=== PATIENT | female | born 1935 | race Caucasian/White ===

== ENCOUNTER → 2017-12-13 08:20 | Outpatient (CLI) | payer MEDICARE, OTHER, SELFPAY ==
[2017-12-13 11:46] LABS: Anion Gap 9 (5-15); BUN 18 mg/dL (7-18); BUN/Creat Ratio 24.2 RATIO (10-20); Calcium,Total 8.8 mg/dL (8.5-10.1); Chloride 105 mmol/L (98-107); Cholesterol 222 mg/dL (200); Creatinine, Serum 0.74 mg/dL (0.55-1.02); EST Glomerular Filtration Rate 79 mL/min (>60); Est Glom Filt Rate - Afr Amer 96 mL/min (>60); Glucose 97 mg/dL (74-106); High Density Lipoprotein 74 mg/dL; Potassium 4.3 mmol/L (3.5-5.1); Sodium Level 142 mmol/L (136-145); Triglycerides 76 mg/dL; Very Low Density Lipoprotein 15 mg/dL (5-40)
== END ==
PROVIDERS: Family Provider Family Medicine; PCP Family Medicine; Visit Provider Family Medicine
DX: Z00.00 Encounter for general adult medical examination without abnormal findings (principal)
CPT/HCPCS: 36415; 80048; 80061

== ENCOUNTER 2020-11-25 12:54 | Inpatient (IN) | payer MEDICARE, OTHER, SELFPAY ==
--- NOTE | 2020-11-14 12:12 | EKG12_ITS ---
Test Reason : PRE OP Blood Pressure : / mmHG Vent. Rate : 065 BPM Atrial Rate : 065 BPM P-R Int : 144 ms QRS Dur : 130 ms QT Int : 426 ms P-R-T Axes : 073 027 083 degrees QTc Int : 443 ms Normal sinus rhythm with sinus arrhythmia Left bundle branch block Abnormal ECG Confirmed by SHEREEN TREADWELL, SRINIVASA ([id number]), editor greeting card RAFIQ BELLA ([id number]) on 11/15/2020 8:39:45 AM Referred By: Gianni Ch Confirmed By:SRINIVASA REGAN MD
[2020-11-25] VITALS (11 sets, daily range): BP systolic 112–167; BP diastolic 43–76; PULSE 47–78; RESP 12–18; TEMP 35.4–37; O2SAT 94–99; BMI 21.9
--- NOTE | 2020-11-25 | LES_PTH ---
PATIENT: TAD RYAN LOC: MS3 U#:[id number] AGE/SX: 85/F ROOM: OR317 RE11/26/[address]: Dr. Gianni Ch MD : [id number] BED: 1 DIS: 11/27/2020 SPEC #: [id number] RECD: 11/25/20 12:28 STATUS: SHERIDAN BRANDIE #: [id number] DEANDRE: 11/25/20 00:[address]: Gianni Ch DEPT: SURGICAL PATHOLOGY RECD BY: Cintia Mahan ENTERED: 11/25/20 13:05 SP TYPE: Lesion OTHR DR: Dr. Anya Crowder MD Tissues: Skin of forehead Procedures: Frozen Section (charge) Frozen Section Add'l ([facility]) Surgery Specimen Level IV HEADER OPERATION: Left forehead lesion PRE-OP DIAGNOSIS: Left forehead lesion TISSUE SUBMITTED: Left forehead lesion, FS at 1226 FROZEN SECTION DIAGNOSIS Lesion of left forehead, biopsy: Invasive squamous cell carcinoma, excised in planes examined. 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 Solar elastosis and actinic change. See comment. AM:yolanda 11/28/2020 COMMENT There is no evidence of perineural or vascular invasion. The lesion appears to have been completely excised from the planes examined. MICROSCOPIC DESCRIPTION Slides are reviewed. GROSS DESCRIPTION Received fresh for frozen section consultation labeled with the patient's name is a specimen designated left forehead lesion. The specimen consists of an ellipse of light cuello excised skin measuring 3 x 1.3 x 0.8 cm and containing an exophytic pink-cuello nodule measuring 1.3 cm in diameter. The specimen has been oriented and is differentially inked as follows: superior - blue, inferior - black. The specimen is serially sectioned and totally submitted in two cassettes for frozen section consultation. / AM:yolanda 11/25/20 TC:0 CPT: 05002, 26208, 41727
[2020-11-25] MEDS: Lactated Ringers 1,000 ML 100 ML IV ×2 (10:07→18:33)
[2020-11-25 10:18] LABS: Absolute Lymphocyte Count 1.19 X10^3/uL (0.83-4.51); Absolute Neutrophil Count 2.3 X10^3/uL (2.0-7.7); Basophil# 0.05 X10^3/uL; Basophil% 1.3 % (0-1); Eosinophil# 0.07 X10^3/uL; Eosinophils% 1.8 % (0-5); Hematocrit 40.8 % (37-47); Lymphocyte # 1.19 X10^3/ul (0.83-4.51); Lymphocyte % 30.6 % (19-41); Mean Corp Hgb Conc 31.9 g/dL (32-36); Mean Corpuscular Hgb 29.5 pg (27.0-32.0); Mean Corpuscular Volume 92.7 fL (81-99); Mean Platelet Vol. 9.6 fl (6.2-12.0); Monocyte# 0.32 X10^3/uL; Monocyte% 8.2 % (0-10); NRBC Flagged by Analyzer 0 % (0-5); Neutrophil # 2.25 X10^3/uL (2.7-7.7); Neutrophil % 57.8 % (47-70); Platelet Count 237 K/mm3 (150-450); RBC Distribution Width CV 11.9 % (11.6-14.6); RBC Distribution Width SD 40.9 fl (35.1-43.9); White Blood Count 3.9 K/mm3 (4.4-11.0)
[2020-11-25 10:35] LABS: Anion Gap 4 (5-15); BUN 15 mg/dL (7-18); BUN/Creat Ratio 20.2 RATIO (10-20); Calcium,Total 8.8 mg/dL (8.5-10.1); Chloride 105 mmol/L (98-107); Creatinine, Serum 0.74 mg/dL (0.55-1.02); EST Glomerular Filtration Rate 79 mL/min (>60); Est Glom Filt Rate - Afr Amer 96 mL/min (>60); Glucose 101 mg/dL (74-106); Potassium 4.3 mmol/L (3.5-5.1); Sodium Level 140 mmol/L (136-145)
[2020-11-25] MEDS: Lidocaine 1% /Epi 1:100 (50ml) 50 ML VIAL (12:17)
[2020-11-25] MEDS: Bacitracin 500 UNITS/GM PACKET (12:38)
--- NOTE | 2020-11-25 12:41 | OP.PCM_ITS ---
Problems Associated Problem List Diagnoses (1) Zenker diverticulum: (2) Squamous cell carcinoma, face: Report of Operation Date of Procedure: 11/25/20 Pre-Operative Diagnosis: Zenker's diverticulum, suspicious lesion left forehead Post-Operative Diagnosis: Zenker's diverticulum, squamous cell carcinoma left forehead Surgery/Procedure Performed:: Transoral Zenker's diverticulotomy, excison of SCCA of left forehead 4.5 x 1.2 cm Description of Surgical Findings:: Margo is an 85-year-old female with progressive dysphagia secondary to a Zenker's diverticulum as well as a suspicious bleeding lesion of the left forehead for possible skin malignancy. She was counseled regarding the above procedures for treatment of these complaints and was eager to proceed. The risks, alternatives, potential complications, and benefits were discussed at length and any questions answered to the patient and/or caregiver's satisfaction. Witnessed informed consent was obtained in the office, and the patient and/or caregiver was agreeable to proceed. Procedure went as follows: The patient was identified in the preoperative holding and brought to the operating room she was placed under general anesthesia and intubated. When appropriate issues obtained the head of bed was rotated and the patient prepped and draped in usual sterile fashion. A dental guard was then placed to protect the upper teeth and a Weerda laryngoscope then introduced. The esophageal inlet was then visualized where posteriorly there is noted to be a diverticulum with impacted food bolus. This was then removed usi ng a suction. Anteriorly the esophageal lumen was then identified and confirmed by passing the NG tube where stomach secretions were noted on placing the tube on suction. The superiorly of the Weerda scope was then placed within the esophagus and the posteriorly within the diverticulum bringing the cricopharyngeal band into view and the patient then placed in suspension. Using the YUNI stapler this was then transected joining the diverticulum with the esophageal lumen and obliterating the diverticulum sac. This resulted in excellent correction of the diverticulum in the scope and the dental guard was then removed completing this portion of the procedure. The head of bed was then rotated back to the neutral position in the left forehead prepped and draped in usual sterile fashion. There is noted to be a 1 x 1 cm exophytic friable lesion of the left forehead in the area was then injected with 1% lidocaine with 1 100,000 epinephrine for a total of 3 mL. After allowing for vasoconstriction, a 15 blade scalpel was used to incise an ellipse 1.2 x 4.5 cm through the skin and subcutaneous tissue. This was then sharply undermined from the overlying musculature and sent for frozen section evaluation which revealed a squamous cell carcinoma with clear margins. The edges of the wound were then undermined and closed deeply with interrupted 4-0 Vicryl sutures followed by running 5-0 subcuticular Monocryl suture. Steri- Strips were then applied. The patient was then returned to anesthesia where she was advised about complication having tolerated the procedure well.` Surgeon: Gianni Ch Type of Anesthesia: General Anesthesiologist: Gal King Special Medications: none Specimen's removed: squamous cell carcinoma of face Drains: none Estimated Blood Loss (mL): 0 mL Fluids Replaced: 600 mL Grafts/Implants Used: none Complications none Admit VTE Documentation VTE Present on Admission: No VTE Mechan Device Prophylaxis: SCD's VTE Pharm Prophylaxis ordered?: No
[2020-11-25] MEDS: Acetaminophen 650 MG/20 ML UDC 500 MG PO (16:59)
[2020-11-25] MEDS: Ensure Clear 120 ML Liquid PO (18:33)
[2020-11-26] VITALS (14 sets, daily range): BP systolic 132–175; BP diastolic 58–67; PULSE 50–127; RESP 16–18; TEMP 36.7–37; O2SAT 96–98
[2020-11-26] MEDS: Acetaminophen 650 MG/20 ML UDC 500 MG PO (03:01)
[2020-11-26 06:00] LABS: Absolute Lymphocyte Count 1.09 X10^3/uL (0.83-4.51); Absolute Neutrophil Count 10.3 X10^3/uL (2.0-7.7); Basophil# 0.02 X10^3/uL; Basophil% 0.2 % (0-1); Hematocrit 34.4 % (37-47); Hemoglobin 11.5 g/dL (12.0-15.0); Lymphocyte # 1.09 X10^3/ul (0.83-4.51); Lymphocyte % 8.9 % (19-41); Mean Corp Hgb Conc 33.4 g/dL (32-36); Mean Corpuscular Hgb 30.3 pg (27.0-32.0); Mean Corpuscular Volume 90.5 fL (81-99); Mean Platelet Vol. 9.9 fl (6.2-12.0); Monocyte# 0.72 X10^3/uL; Monocyte% 5.9 % (0-10); NRBC Flagged by Analyzer 0 % (0-5); Neutrophil # 10.29 X10^3/uL (2.7-7.7); Neutrophil % 84.5 % (47-70); Platelet Count 215 K/mm3 (150-450); RBC Distribution Width CV 11.9 % (11.6-14.6); RBC Distribution Width SD 39.5 fl (35.1-43.9); White Blood Count 12.2 K/mm3 (4.4-11.0)
[2020-11-26 07:07] LABS: Magnesium 1.9 mg/dL (1.6-2.6)
--- NOTE | 2020-11-26 08:41 | PN.SURG_ITS ---
Subjective Subjective Patient is postoperative day #1 after Zenker's diverticulotomy by transoral approach. She reports no cervical or chest pain and that she has been tolerating clear liquids well without complication. Objective Data Objective Data Patient is well-appearing at the bedside. The incisional site of her right forehead for her squamous cell carcinoma is intact without erythema or exudate. Neck is soft and supple without crepitus or point tenderness. Oropharynx is normal in appearance. Vital Signs: Vital Signs Temp Pulse Resp BP Pulse Ox 98.2 F 127 H 18 132/58 H 96 11/26/20 02:55 11/26/20 06:01 11/26/20 02:55 11/26/20 02:55 11/26/20 02:55 Oxygen Delivery Method Room Air Weight: 61.6 kg Body Mass Index (BMI) 21.9 Intake & Output: Intake and Output for Last 24 Hours 11/24/20 11/25/20 11/26/20 23:59 23:59 23:59 Intake Total 1843.33 / 1843.33 1083.33 / 1083.33 Output Total 600 / 600 Balance 1243.33 / 1243.33 1083.33 / 1083.33 Lab / Micro Data Result Diagrams: 11/26/20 05:35 11/25/20 10:00 Labs: Laboratory Results - last 24 hr 11/25/20 11/25/20 11/26/20 10:00 10:00 05:35 WBC 3.9 L 12.2 H RBC 4.40 3.80 L Hgb 13.0 11.5 L Hct 40.8 34.4 L MCV 92.7 90.5 MCH 29.5 30.3 MCHC 31.9 L 33.4 RDW Std Deviation 40.9 39.5 RDW Coeff of Yosi 11.9 11.9 Plt Count 237 215 MPV 9.6 9.9 Immature Gran % (Auto) 0.300 0.500 Neut % (Auto) 57.8 84.5 H Lymph % (Auto) 30.6 8.9 L [place] % (Auto) 8.2 5.9 Eos % (Auto) 1.8 0.0 Baso % (Auto) 1.3 H 0.2 Absolute Neuts (auto) 2.3 10.3 H Absolute Lymphs (auto) 1.19 1.09 Nucleated RBC % 0 0 Sodium 140 Potassium 4.3 Chloride 105 Carbon Dioxide 31.0 Anion Gap 4 L BUN 15 Creatinine 0.74 Estim Creat Clear Calc 37.80 Est GFR (MDRD) Af Amer 96 Est GFR (MDRD) Non-Af 79 BUN/Creatinine Ratio 20.2 H Glucose 101 Calcium 8.8 Magnesium 11/26/20 05:35 WBC RBC Hgb Hct MCV MCH MCHC RDW Std Deviation RDW Coeff of Yosi Plt Count MPV Immature Gran % (Auto) Neut % (Auto) Lymph % (Auto) [place] % (Auto) Eos % (Auto) Baso % (Auto) Absolute Neuts (auto) Absolute Lymphs (auto) Nucleated RBC % Sodium Potassium Chloride Carbon Dioxide Anion Gap BUN Creatinine Estim Creat Clear Calc Est GFR (MDRD) Af Amer Est GFR (MDRD) Non-Af BUN/Creatinine Ratio Glucose Calcium Magnesium 1.9 Physical Exam Const alert, oriented x3 and no apparent distress General Appearance: cooperative and comfortable HEENT normocephalic, external ears normal, nasal mucous membranes and turbinates normal, moist oral mucous membranes and oropharynx normal Eyes PERRL and EOMs intact bilaterally Neck full ROM, no lymphadenopathy and supple General: normal visual inspection and trachea midline Resp normal respiratory effort and normal air movement Cardio regular rate and regular rhythm Cardio Narrative: She had a brief episode of V. tach early this morning but has returned to regular sinus rhythm in the 50s Neuro oriented x3 Speech: speech normal Assessment & Plan Assessment/Plan (1) Zenker diverticulum: PLAN: The patient appears well without complaints of significant pain. She does have elevated white blood cell count this morning which is worrisome for possible infection although this may be attributable to intraoperative steroids. Investigation of possible perforation at her esophageal surgical site is considered however a barium swallow is not available for evaluation today. Clinically she shows no overt signs of mediastinitis and her brief run of tachycardia has resolved with a return to a normal sinus rate. She has no neck tenderness or crepitus and her pain has not increased significantly. Given this I have asked that she maintain limitations to a clear diet we will start some intravenous antibiotic coverage and follow her white count for trending. She was hopeful for discharge today however given these findings I do feel that she warrants additional observation given her surgery and advanced age and she is agreeable to this. (2) Squamous cell carcinoma, face: PLAN: Her surgical excision site is intact without signs of infection.
[2020-11-26] MEDS: Timolol 0.5% 5ML OPTH.BTL 1 DRP EACH EYE (08:51)
[2020-11-26] MEDS: Lactated Ringers 1,000 ML 100 ML IV ×2 (08:52→19:22)
[2020-11-26] MEDS: 0.9% Saline Lock 10 ML Syringe IV (08:53)
--- NOTE | 2020-11-26 09:15 | CASEMGMT ---
RN CM Face to Face with patient for initial transition planning/care coordination assessment. RN CM introduced self and role at [facility]. Patient lying in bed, alert and oriented. Patient willing to participate in assessment and is able to answer all questions appropriately. Care providers, pharmacy, and demographics verified. Patient wishes to discharge home, denies need for home health at this time. Patient states she has no further needs or concerns at this time. CM to follow for discharge planning needs that may arise. PCP: Benjamín Specialists: [facility]; Preferred Pharmacy: [facility] Insurance: [facility], [facility] Prescription Benefit: yes Living Will/HPOA: yes, Roxana Burger, daughter LNOK: daughter Living Arrangements: Milton lives alone in a 2 story home with bed and bath on first floor. 2 steps and railing to enter the home. Patient states she is independent at home. Transportation: self/daughter DME/HHC: Patient states she has shower chair, raised toilet, cane, walker at home. No previous HHC or SNF. Disposition Plan: Patient to discharge home with family support and follow-up plans in place. Renae BRAN, RN, CM
[2020-11-26] MEDS: Ensure Clear 120 ML Liquid PO ×4 (09:47→21:57)
[2020-11-26] MEDS: Cefazolin 1 GM/50 ML BAG IV ×3 (12:10→21:57)
--- NOTE | 2020-11-26 19:54 | RAD_ITS ---
STUDY: X-RAY CHEST REASON FOR EXAM: Female, 85 years old. elevated White count TECHNIQUE: Single AP portable view of the chest. COMPARISON: None. FINDINGS: The lungs are clear and expanded. There is no demonstrated pleural abnormality. Normal size heart. Normal mediastinum and jade. Normal visualized pulmonary arteries. Normal visualized aortic arch and descending thoracic aorta. Normal visualized thoracic spine. Normal visualized ribs, clavicles, and shoulders. There is no demonstrated abnormality of the visualized soft tissue structures of the upper abdomen. RAD/Chest 1 View (Portable) IMPRESSION: Normal x-ray examination of the chest. Electronically Signed: George Remy MD at 8:41 EDT Tel , Service support ,
[2020-11-26 20:41] LABS: Absolute Lymphocyte Count 2.04 X10^3/uL (0.83-4.51); Absolute Neutrophil Count 6.1 X10^3/uL (2.0-7.7); Basophil# 0.04 X10^3/uL; Basophil% 0.4 % (0-1); Eosinophil# 0.01 X10^3/uL; Eosinophils% 0.1 % (0-5); Hematocrit 37.8 % (37-47); Hemoglobin 12.1 g/dL (12.0-15.0); Lymphocyte # 2.04 X10^3/ul (0.83-4.51); Lymphocyte % 22.4 % (19-41); Mean Corpuscular Hgb 29.4 pg (27.0-32.0); Mean Platelet Vol. 9.9 fl (6.2-12.0); Monocyte# 0.83 X10^3/uL; Monocyte% 9.1 % (0-10); NRBC Flagged by Analyzer 0 % (0-5); Neutrophil # 6.14 X10^3/uL (2.7-7.7); Neutrophil % 67.6 % (47-70); Platelet Count 230 K/mm3 (150-450); RBC Distribution Width SD 40.5 fl (35.1-43.9); Red Blood Count 4.11 M/mm3 (4.2-5.4); White Blood Count 9.1 K/mm3 (4.4-11.0)
--- NOTE | 2020-11-26 20:48 | NURSING ---
Dr. Ch came in to see this pt d/t the fact that her WBC had doubled to 24. Manuel OCONNOR brought it to my attention that the result of 24 was not showing up in the computer any longer. I called lab and discovered that the blood had been drawn on the wrong pt. The new lab value is pending.
[2020-11-26] MEDS: Latanoprost 0.005% 1 Bottle 1 DRP EACH EYE (21:57)
[2020-11-26 22:39] LABS: Bacteria 0 SEEN /hpf (None Seen); Mucous, Urine 0 SEEN /hpf (<or=2+)
[2020-11-26 22:40] LABS: Color, Urine Straw (Yellow); Glucose, Dipstick Normal (Normal); Ketone-Dipstick Negative (Negative); Leukocyte Esterase-Dipstick 25 /ul (Negative); Nitrite-Dipstick Negative (Negative); Occult Blood-Urine 25 /ul (Negative); Protein-Dipstick Negative (Negative); Urine Bilirubin Dipstick Negative (Negative); Urine Clarity Sl. Cloudy (Clear); Urine Urobilinogen Normal (Normal); Urine pH 6.5 (5.0 - 8.0)
[2020-11-26 23:02] LABS: Red Blood Cells-Urine 0-5 SEEN /hpf (0-5); Squamous Epithelial Cells - UA 0-5 SEEN /hpf (5-10); White Blood Cells 0-5 SEEN /hpf (0-5)
[2020-11-27 00:54] VITALS: BP 155/56; PULSE 66; RESP 18; TEMP 36.9; O2SAT 96
[2020-11-27 03:00] VITALS: PULSE 68
[2020-11-27] MEDS: Lactated Ringers 1,000 ML 100 ML IV (05:19)
[2020-11-27] MEDS: Cefazolin 1 GM/50 ML BAG IV (05:20)
[2020-11-27 05:21] VITALS: BP 157/65; PULSE 65; RESP 18; TEMP 37.2; O2SAT 96
[2020-11-27 07:03] LABS: Absolute Lymphocyte Count 1.45 X10^3/uL (0.83-4.51); Absolute Neutrophil Count 4.3 X10^3/uL (2.0-7.7); Basophil# 0.04 X10^3/uL; Basophil% 0.6 % (0-1); Eosinophil# 0.02 X10^3/uL; Eosinophils% 0.3 % (0-5); Hematocrit 37.8 % (37-47); Hemoglobin 12.3 g/dL (12.0-15.0); Lymphocyte # 1.45 X10^3/ul (0.83-4.51); Lymphocyte % 22.4 % (19-41); Mean Corp Hgb Conc 32.5 g/dL (32-36); Mean Corpuscular Hgb 29.6 pg (27.0-32.0); Mean Corpuscular Volume 90.9 fL (81-99); Mean Platelet Vol. 9.9 fl (6.2-12.0); Monocyte# 0.66 X10^3/uL; Monocyte% 10.2 % (0-10); NRBC Flagged by Analyzer 0 % (0-5); Neutrophil # 4.29 X10^3/uL (2.7-7.7); Neutrophil % 66.2 % (47-70); Platelet Count 223 K/mm3 (150-450); RBC Distribution Width SD 39.8 fl (35.1-43.9); Red Blood Count 4.16 M/mm3 (4.2-5.4); White Blood Count 6.5 K/mm3 (4.4-11.0)
--- NOTE | 2020-11-27 08:36 | PCM.PN.SRG ---
Subjective Subjective Patient reports that she is feeling well overnight without complaints of neck pain chest pain or dysphagia. She denies any burning with urination or lower abdominal pain. She reports that she desires to go home today. Objective Data Objective Data Patient is well-appearing at the bedside. Neck is supple without tenderness. Abdomen is soft without tenderness. The skin incision site over the left forehead is clean dry and intact without erythema, exudates, or swelling. Vital Signs: Vital Signs Temp Pulse Resp BP Pulse Ox 98.9 F 65 18 157/65 H 96 11/27/20 05:21 11/27/20 05:21 11/27/20 05:21 11/27/20 05:11/27/20 05:21 Oxygen Delivery Method Room Air Weight: 61.6 kg Body Mass Index (BMI) 21.9 Intake & Output: Intake and Output for Last 24 Hours 11/25/20 11/26/20 11/27/20 23:59 23:59 23:59 Intake Total 1843.33 / 1843.33 4195.00 / 4195.00 1423.33 / 1423.33 Output Total 600 / 600 Balance 1243.33 / 1243.33 4195.00 / 4195.00 1423.33 / 1423.33 Lab / Micro Data Result Diagrams: 11/27/20 06:34 11/25/20 10:00 Labs: Laboratory Results - last 24 hr 11/26/20 11/26/20 11/26/20 18:47 20:00 20:29 WBC Cancelled 9.1 Corrected WBC Cancelled RBC Cancelled 4.11 L Hgb Cancelled 12.1 Hct Cancelled 37.8 MCV Cancelled 92.0 MCH Cancelled 29.4 MCHC Cancelled 32.0 RDW Std Deviation Cancelled 40.5 RDW Coeff of Yosi Cancelled 12.0 Plt Count Cancelled 230 MPV Cancelled 9.9 Immature Gran % (Auto) Cancelled 0.400 Neut % (Auto) Cancelled 67.6 Lymph % (Auto) Cancelled 22.4 [place] % (Auto) Cancelled 9.1 Eos % (Auto) Cancelled 0.1 Baso % (Auto) Cancelled 0.4 Absolute Neuts (auto) Cancelled 6.1 Absolute Lymphs (auto) Cancelled 2.04 Total Counted Cancelled Neutrophils % (Manual) Cancelled Band Neutrophils % Cancelled Lymphocytes % (Manual) Cancelled Monocytes % (Manual) Cancelled Eosinophils % (Manual) Cancelled Basophils % (Manual) Cancelled Metamyelocytes % Cancelled Myelocytes % Cancelled Promyelocytes % Cancelled Blast Cells % Cancelled Plasma Cell % (Manual) Cancelled Other Cells % Cancelled Nucleated RBC % Cancelled 0 Nucleated RBCs/100 WBC Cancelled Differential Comment Cancelled Diff Path Review Cancelled Hypersegmented Neuts Cancelled Atypical Lymphocytes Cancelled Reactive Lymphocytes Cancelled Smudge Cells Cancelled Toxic Granulation Cancelled Toxic Vacuolation Cancelled Dohle Bodies Cancelled Crystal Rods Cancelled Platelet Estimate Cancelled Plt Morphology Comment Cancelled RBC Morphology Cancelled Polychromasia Cancelled Hypochromasia Cancelled Poikilocytosis Cancelled Basophilic Stippling Cancelled Anisocytosis Cancelled Microcytosis Cancelled Macrocytosis Cancelled Spherocytes Cancelled Sickle Cells Cancelled Target Cells Cancelled Tear Drop Cells Cancelled Ovalocytes Cancelled Stomatocytes Cancelled [place] Bodies Cancelled Omero Cells Cancelled Bite Cells Cancelled Crenated Cell Cancelled Acanthocytes (Spur) Cancelled Rouleaux Cancelled Schistocytes Cancelled Urine Color Straw Urine Clarity Sl. Cloudy Urine pH 6.5 Ur Specific [place] 1.010 Urine Protein Negative Urine Glucose (UA) Normal Urine Ketones Negative Urine Occult Blood 25 H Urine Nitrite Negative Urine Bilirubin Negative Urine Urobilinogen Normal Ur Leukocyte Esterase 25 H Urine RBC 0-5 SEEN Urine WBC 0-5 SEEN Ur Squamous Epith Cells 0-5 SEEN Urine Bacteria 0 SEEN Urine Mucus 0 SEEN 11/27/20 06:34 WBC 6.5 Corrected WBC RBC 4.16 L Hgb 12.3 Hct 37.8 MCV 90.9 MCH 29.6 MCHC 32.5 RDW Std Deviation 39.8 RDW Coeff of Yosi 12.0 Plt Count 223 MPV 9.9 Immature Gran % (Auto) 0.300 Neut % (Auto) 66.2 Lymph % (Auto) 22.4 [place] % (Auto) 10.2 H Eos % (Auto) 0.3 Baso % (Auto) 0.6 Absolute Neuts (auto) 4.3 Absolute Lymphs (auto) 1.45 Total Counted Neutrophils % (Manual) Band Neutrophils % Lymphocytes % (Manual) Monocytes % (Manual) Eosinophils % (Manual) Basophils % (Manual) Metamyelocytes % Myelocytes % Promyelocytes % Blast Cells % Plasma Cell % (Manual) Other Cells % Nucleated RBC % 0 Nucleated RBCs/100 WBC Differential Comment Diff Path Review Hypersegmented Neuts Atypical Lymphocytes Reactive Lymphocytes Smudge Cells Toxic Granulation Toxic Vacuolation Dohle Bodies Crystal Rods Platelet Estimate Plt Morphology Comment RBC Morphology Polychromasia Hypochromasia Poikilocytosis Basophilic Stippling Anisocytosis Microcytosis Macrocytosis Spherocytes Sickle Cells Target Cells Tear Drop Cells Ovalocytes Stomatocytes [place] Bodies [place] Cells Bite Cells Crenated Cell Acanthocytes (Spur) Rouleaux Schistocytes Urine Color Urine Clarity Urine pH Ur Specific [place] Urine Protein Urine Glucose (UA) Urine Ketones Urine Occult Blood Urine Nitrite Urine Bilirubin Urine Urobilinogen Ur Leukocyte Esterase Urine RBC Urine WBC Ur Squamous Epith Cells Urine Bacteria Urine Mucus Physical Exam Const alert, oriented x3 and no apparent distress General Appearance: cooperative and comfortable HEENT normocephalic and head/scalp atraumatic Face and Sinus: normal facial exam Nose: external nose normal External Ear: external ears normal Eyes PERRL and EOMs intact bilaterally Neck full ROM and no lymphadenopathy General: normal visual inspection and trachea midline Lymph Lymphatic: no lymphadenopathy noted Resp normal respiratory effort and normal air movement Cardio regular rate and regular rhythm Skin no rashes or lesions noted Neuro oriented x3 Assessment & Plan Assessment/Plan (1) Squamous cell carcinoma, face: (2) Zenker diverticulum: PLAN: That he is doing well postoperative day #2 status post transoral treatment of his Zenker's diverticulum. She had an immediate postoperative elevation of her white blood cell count however this is continued to decline and she is otherwise asymptomatic without signs of mediastinitis or other infection. She is noted to have a positive leukoesterase and small blood on urinalysis and treatment with a course of antibiotic for coverage of urinary tract infection is advised. We will plan for discharge today. She is tolerated a liquid diet here in the hospital of asked her to advance her diet slowly and advised her to notify me of any signs of infection such as progressive neck pain, fever, dysphagia, or any other change in her baseline status. She is agreeable to do so and very much would like to go home today as she states she is feeling entirely well.
--- NOTE | 2020-11-27 08:41 | PCM.DC ---
Discharge Instructions Diet Discharge Diet: Light diet - advance as tolerated Activity Discharge Activity: Return to Normal Activity Dressing / Incision Call your doctor if your incision/area has: Increased Pain/ Swelling Call your doctor if you observe: Fever of 101 or Higher, Shortness of breath, Chest pain, Increased palpitations (irregular heartbeat) and Uncontrolled pain Follow Up Care Please Follow Up With: Gianni Ch MD When: 1 week Test Results: Test results from this visit will be discussed in further detail at your follow-up appointment, if applicable. Discharge Plan Admission Admit Date/Time: 11/26/20 09:08 Primary Reason for Your Visit: Zenker's diverticulum Attending Provider: Gianni Ch Primary Care Provider: Anya Crowder Discharge Orders/Prescriptions Prescriptions: New sulfamethoxazole-trimethoprim [Bactrim DS] 800-160 mg tablet 1 tab PO Q12H Qty: 14 RF: 0 Continued multivitamin Tablet 1 tab PO DAILY RF: 0 latanoprost 0.005 % drops 1 drp EACH EYE QHS RF: 0 timolol maleate 0.5 % drops 1 drp EACH EYE 0800 RF: 0 Referrals / Follow Up: Anya Crowder MD [Primary Care Provider] - Disposition Disposition (needs filled in before D/C Order can be placed): Home, Self Care
[2020-11-27 08:57] VITALS: BP 164/64; PULSE 58; RESP 18; TEMP 36.5; O2SAT 96
== END 2020-11-27 09:17 | disposition home or self-care (01) | DRG 328 ==
LOC: MS3 11-26 17:41 → SDC 11-28 11:23
PROVIDERS: Admitting Provider Otolaryngology; PCP Family Medicine; Referring Provider Otolaryngology; Visit Provider Otolaryngology
PROC: 0K844ZZ Division of Tongue, Palate, Pharynx Muscle, Percutaneous Endoscopic Approach (ICD-10-PCS; principal; 2020-11-25 11:10)
PROC: 0K844ZZ Division of Tongue, Palate, Pharynx Muscle, Percutaneous Endoscopic Approach (ICD-10-PCS; 2020-11-25 11:10)
DX: K22.5 Diverticulum of esophagus, acquired (principal); C44.329 Squamous cell carcinoma of skin of other parts of face
CPT/HCPCS: 36415; 71045; 80048; 81001; 83735; 85025; 88305; 88331; 88332; 93005; 97802; J7120; A4216; J2405